=== PATIENT | female | born 1995 | race American Indian/Alaskan Native ===

== ENCOUNTER 2018-01-24 18:54 | Emergency (ER) | payer BC ==
[2018-01-24 20:02] VITALS: BP 137/86
[2018-01-24 21:53] LABS: Bacteria,Urine 4+ /HPF (Negative); Bilirubin,Urine NEG (Negative); Blood,Urine SM (Negative); Color,Urine Yellow (Yellow); Mucus,Urine 3+ /HPF; Protein,Urine <15 mg/dL mg/dL (Negative); Urobilinogen,Urine < 2.0 mg/dL (<2.0)
--- NOTE | 2018-01-24 22:39 | Emergency Department Report ---
ED Back Pain/Injury HPI - General Chief Complaint: Urogenital-Female Stated Complaint: UTI Time Seen by Provider: 01/24/18 21:48 Source: patient Limitations: No Limitations - History of Present Illness Initial Comments: a 22-year-old -Indian female who presents with lower back pain for 2 days. Patient reports pain is worse on the right side. She is having some dish Aredia urgency, and foul odor. Patient reports taken Azo for about 2 days when no improvement of symptoms. Patient reports symptoms are very similar to her the same symptoms she had last year when she was diagnosed with the UTI. Denies frequency, discharge, and fever. MD Complaint: back pain (bilateral low back pain, that is worse on right) -: days(s) (2 days) Similar Symptoms Previously: Yes (last year diagnosed with UTI) Place: home Radiation: none Severity: mild Severity scale (0 -10): 5 Quality: aching Consistency: intermittent Improves With: none Worsens With: none Context: unknown Associated Symptoms: denies other symptoms Treatments Prior to Arrival: other (AZO) - Related Data Previous Rx's Medication Instructions Recorded Last Taken Type Sulfamethoxazole/Trimethoprim 1 each PO BID #6 tablet 01/24/18 Unknown Rx [Bactrim DS TAB] Allergies Allergy/AdvReac Type Severity Reaction Status Date / Time No Known Allergies Allergy Unverified 01/24/18 20:02 ED Review of Systems ROS: Stated complaint: UTI Other details as noted in HPI Constitutional: denies: chills, fever Respiratory: denies: cough, shortness of breath, wheezing Cardiovascular: denies: chest pain, palpitations, edema, syncope Gastrointestinal: denies: abdominal pain, nausea, vomiting, diarrhea Genitourinary: urgency. denies: dysuria, frequency, hematuria, discharge Musculoskeletal: back pain (bilateral low back pain). denies: joint swelling, arthralgia Neurological: denies: headache, weakness, paresthesias Psychiatric: denies: anxiety, depression ED Back Pain Physical Exam - Exam General: Vital signs noted. No distress. Alert and acting appropriately. Back/Abdomen: Yes Flank Tenderness (left flank pain), No Abdominal Tenderness, No Perithoracic Tenderness, No Perilumbar Tenderness, No Sacroiliac Tenderness, No Straight Leg Raise Pain Neuro: Yes Normal Sensation, Yes Normal DTR's, Yes Normal Gait, No Motor Weakness ED Course Vital Signs 01/24/18 19:54 Temperature 98.3 F Pulse Rate 84 Respiratory 14 Rate Blood Pressure 137/86 O2 Sat by Pulse 98 Oximetry Ed Back Pain Tests - Tests Tests: Abnormal UA ED Medical Decision Making - Medical Decision Making This is a 22 y.o. female that presents with bilateral low back pain and urgency for 2 days. Patient examined by me and stable. No distress noted. Urine obtained and abnormal, blood and nitrates. Vitals stable. Physical findings + CVA tenderness on left. Start bactrim DS for acute cystitis. Take tylenol or ibuprofen for pain. Discussed plan with patient and he agreed with plan to treat outpatient. Discharged home. Follow up with PCP in 48-72 hours. Critical care attestation.: If time is entered above; I have spent that time in minutes in the direct care of this critically ill patient, excluding procedure time. ED Disposition Clinical Impression: Acute cystitis Qualifiers: Hematuria presence: with hematuria Qualified Code(s): N30.01 - Acute cystitis with hematuria Disposition: TO HOME OR SELFCARE Is pt being admited?: No Does the pt Need Aspirin: No Condition: Stable Instructions: Urinary Tract Infection in Women (ED) Additional Instructions: Increase fluid intake. Complete full course of antibiotics as prescribed. Symptoms should improve within 24-48 hours. Do not drink alcohol beverages while taking antibiotics and to 24 hours after completion of antibiotics. Follow up with primary care provider in 2-3 days. Prescriptions: Sulfamethoxazole/Trimethoprim [Bactrim DS TAB] 1 each PO BID #6 tablet Referrals: [facility] [Outside] - 3-5 Days [facility] [Outside] - 3-5 Days [facility] [Outside] - 3-5 Days Forms: Work/School Release Form(ED) Time of Disposition: 22:44 Print Language: SINHALA
== END 2018-01-24 22:50 | disposition home or self-care (01) ==
LOC: ED 18:54
DX: N30.01 Acute cystitis with hematuria (principal)
CPT/HCPCS: 81001; 87086; 99283

== ENCOUNTER 2018-01-30 20:49 | Emergency (ER) | payer BC ==
[2018-01-30] MEDS ORDERED: NACL 0.9% 1000 ML 1,000 ML IV ONE (21:47)
[2018-01-30] MEDS ORDERED: ATARAX PO ONE (21:47)
[2018-01-30 22:10] LABS: Basophils # (Auto) 0.1 K/mm3 (0.0-0.1); Basophils % (Auto) 0.9 % (0.0-1.8); Eosinophils # (Auto) 0.1 K/mm3 (0.0-0.4); Eosinophils % (Auto) 0.6 % (0.0-4.3); Hematocrit 35.6 % (30.3-42.9); Hemoglobin 12.1 gm/dl (10.1-14.3); Lymphocytes # (Auto) 1.9 K/mm3 (1.2-5.4); Lymphocytes % (Auto) 22.1 % (13.4-35.0); Mean Corpuscular HGB Conc 34 % (30-34); Mean Corpuscular Hemoglobin 33 pg (28-32); Mean Corpuscular Volume 96 fl (79-97); Monocytes # (Auto) 0.6 K/mm3 (0.0-0.8); Monocytes % (Auto) 6.5 % (0.0-7.3); Platelet Count 295 K/mm3 (140-440); Red Cell Distribution Width 12.1 % (13.2-15.2)
[2018-01-30 22:22] LABS: Alanine Aminotransferase 9 units/L (7-56); BUN/Creatinine Ratio 13; Blood Urea Nitrogen 9 mg/dL (7-17); Calcium 8.8 mg/dL (8.4-10.2); Hemolysis Index 78
[2018-01-30] MEDS ORDERED: ATIVAN PO ONE (23:19)
--- NOTE | 2018-01-30 23:22 | Emergency Department Report ---
ED Psych HPI - General Chief Complaint: Psych Stated Complaint: ALCOHOL WITHDRAWL Time Seen by Provider: 01/30/18 21:45 Source: patient Mode of arrival: Ambulatory - History of Present Illness Initial Comments: This is a 23-year-old female with alcohol use disorder who comes in with thoughts of suicide, anxiety, depression and she believes that she is in alcohol withdrawal. She did drink today. She states that she started drinking when she was young, and she usually binge drinks. She was like to get help with her drinking. She denies any other symptoms at this time except for anxiety. MD Complaint: suicidal ideation, feels depressed -: Gradual Associated Psychiatric Symptoms: depression, suicidal ideation Quality: constant Improves With: none Worsens With: none Context: recent alcohol abuse Associated Symptoms: denies other symptoms Treatments Prior to Arrival: none If Self Harm: admits thoughts of - Related Data Previous Rx's Medication Instructions Recorded Last Taken Type Sulfamethoxazole/Trimethoprim 1 each PO BID #6 tablet 01/24/18 Unknown Rx [Bactrim DS TAB] Allergies Allergy/AdvReac Type Severity Reaction Status Date / Time No Known Allergies Allergy Verified 01/30/18 21:51 ED Review of Systems ROS: Stated complaint: ALCOHOL WITHDRAWL Other details as noted in HPI Comment: All other systems reviewed and negative Constitutional: see HPI Eyes: as per HPI ENT: as per HPI Respiratory: see HPI Cardiovascular: as per HPI Endocrine: see HPI Gastrointestinal: as per HPI Genitourinary: as per HPI Musculoskeletal: as per HPI Skin: as per HPI Neurological: as per HPI Psychiatric: as per HPI Hematological/Lymphatic: as per HPI ED Past Medical Hx - Past Medical History Previous Medical History?: No - Surgical History Past Surgical History?: No - Social History Smoking Status: Never Smoker Substance Use Type: Alcohol - Medications Home Medications: Home Medications Medication Instructions Recorded Confirmed Last Taken Type Sulfamethoxazole/Trimethoprim 1 each PO BID #6 tablet 01/24/18 Unknown Rx [Bactrim DS TAB] ED Physical Exam - General Limitations: No Limitations General appearance: alert, in no apparent distress - Head Head exam: Present: atraumatic - Eye Eye exam: Present: normal appearance, PERRL, EOMI - ENT ENT exam: Present: normal exam, normal orophraynx - Neck Neck exam: Present: normal inspection, full ROM - Respiratory Respiratory exam: Present: normal lung sounds bilaterally. Absent: respiratory distress, wheezes, rales, rhonchi - Cardiovascular Cardiovascular Exam: Present: regular rate, normal rhythm, normal heart sounds - GI/Abdominal GI/Abdominal exam: Present: soft, normal bowel sounds - Extremities Exam Extremities exam: Present: normal inspection, full ROM - Back Exam Back exam: Present: normal inspection, full ROM - Neurological Exam Neurological exam: Present: alert, oriented X3, CN II-XII intact - Psychiatric Psychiatric exam: Present: anxious - Skin Skin exam: Present: warm, dry, intact, normal color ED Course Vital Signs 01/30/18 01/30/18 21:22 23:02 Temperature 98.5 F 98.7 F Pulse Rate 107 H 82 Respiratory 20 18 Rate Blood Pressure 150/100 Blood Pressure 124/87 [Right] O2 Sat by Pulse 98 100 Oximetry - Reevaluation(s) Reevaluation #1: 01/30/18 23:17 [address] to [address] the patient on a 1013. Will get mental health evaluation. 01/30/18 23:25 ED Medical Decision Making - Lab Data Result diagrams: 01/30/18 21:53 01/30/18 21:53 Critical care attestation.: If time is entered above; I have spent that time in minutes in the direct care of this critically ill patient, excluding procedure time. ED Disposition Clinical Impression: Alcohol use disorder, Suicidal ideation, Anxiety Depression Qualifiers: Depression Type: unspecified Qualified Code(s): F32.9 - Major depressive disorder, single episode, unspecified Disposition: [id number]/[id number] PSY HOSP/PSY UNIT Is pt being admited?: No Does the pt Need Aspirin: No Condition: Stable Referrals: PRIMARY CARE, [Primary Care Provider] - 3-5 Days
[2018-01-31 05:39] LABS: Bilirubin,Urine NEG (Negative); Blood,Urine NEG (Negative); Color,Urine Straw (Yellow); HCG Qualitative,Urine Negative (Negative); Protein,Urine <15 mg/dL mg/dL (Negative); Urobilinogen,Urine < 2.0 mg/dL (<2.0)
[2018-01-31 05:47] LABS: Amphetamine Screen,Urine PRESUMPTIVE NEGATIVE; Benzodiazepines Screen,Urine PRESUMPTIVE NEGATIVE; Cannabinoid Screen,Urine PRESUMPTIVE NEGATIVE; Cocaine Screen,Urine PRESUMPTIVE NEGATIVE; Methadone Screen,Urine PRESUMPTIVE NEGATIVE; Opiate Screen,Urine PRESUMPTIVE NEGATIVE
--- NOTE | 2018-01-31 15:55 | Consultation ---
History of Present Illness - Reason for Consult Reason for consult: recent SI, anxiety and etoh abuse - History of Present Psychiatric Illness CHIEF COMPLAINT IN PATIENTS WORDS: HISTORY OF PRESENT ILLNESS: This is a 23-year-old female with a past psychiatric history of alcohol abuse and likely anxiety disorder who presents secondary to recent panic-like symptoms in the context of a binging episode on alcohol. No current psychotropic medication exposure noted. Acute stressors include recent graduation from college with limited scope for employment, reported homelessness , ongoing disputes with her boyfriend and lack of transportation. Patient notes she recently began binge drinking on January 25 and has been experiencing severe anxiety over the past 24-48 hours. This prompted her to come to the ER for further care. On my examination, patient maintained symptoms of severe anxiety and endorsed suicidal thoughts. PSYCHIATRIC REVIEW OF SYSTEMS: Substance: recent EtOH use, BAL 0.01 Detoxification/Withdrawal: anxiety, restlessness, no tremors Depression: irritable and labile moods, periodically sad and anhedonic Radha: labile moods, not hyperverbal, no flight of ideas Psychosis: no AVH, no thought disorder noted, no paranoia/grandiosity/erotomania Anxiety/ OCD/ PTSD: endorses avoidance, panic attacks Suicidality: endorses SI Other Self-Injurious Behavior: none currently, no SIB noted recently Violent/ Aggressive Behavior: none noted CURRENT MEDICATIONS: none ALLERGIES: NKDA PAST PSYCHIATRIC HISTORY: Inpatient: detox at [facility] Outpatient: none reported Prior Suicide Attempts: denies Prior Self-Injurious Behaviors: denies PAST PSYCHIATRIC MEDICATION TRIALS: denies MEDICAL HISTORY: Denies MENTAL STATUS EXAM: Patient in hospital gown, mostly cooperative good eye contact, well related, somewhat anxious and withdrawn, constricted, slow soft, concrete and perseverative, somatically focused, positive suicidal thoughts, no auditory or visual hallucinations, no homicidal thoughts, insight judgment limited, ADLs fair STRENGTHS: communication skills and ability for insight PSYCHOSOCIAL AND ENVIRONMENTAL STRESSORS: lack of transportation, unemployed, relationship difficulties ASSESSMENT: Alcohol abuse Substance abuse mood disorder Generalized anxiety disorder with panic attacks Emerging major depression PLAN OF CARE: - continue 1013 and refer for inpatient psychiatric hospitalization - discontinue benzodiazapines - start scheduled vistaril 25 mg po tid - start sertraline 25 mg po qam Medications and Allergies Allergies Allergy/AdvReac Type Severity Reaction Status Date / Time No Known Allergies Allergy Verified 01/30/18 21:51 Home Medications Medication Instructions Recorded Confirmed Last Taken Type Sulfamethoxazole/Trimethoprim 1 each PO BID #6 tablet 01/24/18 Unknown Rx [Bactrim DS TAB] Mental Status Exam - Vital signs Last Vital Signs Temp 98.7 F 01/30/18 23:02 Pulse 62 01/31/18 03:00 Resp 14 01/31/18 03:00 BP 122/64 01/31/18 03:00 Pulse Ox 100 01/31/18 03:00 Results Result Diagrams: 01/30/18 21:53 01/30/18 21:53 Abnormal lab results 01/30/18 01/30/18 01/30/18 Range/Units 21:53 21:53 21:53 MCH 33 H (28-32) pg RDW 12.1 L (13.2-15.2) % Sodium 136 L (137-145) mmol/L Salicylates < 0.3 L (2.8-20.0) mg/dL Acetaminophen (10.0-30.0) ug/mL 01/30/18 Range/Units 21:53 MCH (28-32) pg RDW (13.2-15.2) % Sodium (137-145) mmol/L Salicylates (2.8-20.0) mg/dL Acetaminophen < 5.0 L (10.0-30.0) ug/mL All other labs normal.
[2018-01-31] MEDS ORDERED: ZOLOFT PO SCH (16:00)
[2018-01-31] MEDS: VISTARIL PO SCH (20:41)
[2018-02-01 09:07] VITALS: BP 149/90
[2018-02-01] MEDS: VISTARIL PO SCH (09:08)
--- NOTE | 2018-02-01 12:04 | Progress Note ---
Subjective - Reason for Consult Consult date: 02/01/18 Reason for consult: Psychiatry Follow-up - Chief Complaint Chief complaint: 23-year-old female with a past psychiatric history of alcohol abuse and likely anxiety disorder who presents secondary to recent panic-like symptoms in the context of a binging episode on alcohol. Today the patient is calm and cooperative. She stated experiencing "lots of " with family/friends recently, so she is afraid of dying. She rate her depression/anxiety 6/10, with 10 being the worse. She would not confirm or deny SI's. She denies HI's and AVH' s. She denies any side effects of her medication. Mental Status Exam - Vital signs Last Vital Signs Temp 98.6 F 02/01/18 09:00 Pulse 107 H 02/01/18 09:00 Resp 18 02/01/18 09:00 BP 149/90 02/01/18 09:00 Pulse Ox 98 02/01/18 09:00 - Exam Narrative exam: MSE: Appearance: calm, cooperative Behavior: regular eye contact Speech: regular rate and tone Mood: "okay" Affect: congruent to mood Thought Process: circumstantial Thought Content: denies SI/HI's and AVH's, would not confirm or deny SI's Motor Activity: lying in bed Cognition: A/O x 3 Insight: variable Judgment: variable Assessment and Plan Impression: MDD. JAMARCUS. Alcohol Use DO. Today the patient is calm and cooperative. The patient could not confirm or deny SI's. Recommendation/Plan: Continue 1013 with placement to inpatient psy services. Continue Zoloft 25 mg PO daily for depression/anxiety and Vistaril 25 mg PO TID for anxiety. Discussed possible suicidality/medication induced jeremie reference Zoloft.
== END 2018-02-01 09:11 ==
LOC: EEVIPCON 20:49 → ED 20:49
DX: F32.9 Major depressive disorder, single episode, unspecified (principal); F10.10 Alcohol abuse, uncomplicated; F41.1 Generalized anxiety disorder
CPT/HCPCS: 36415; 80053; 80307; 81001; 81025; 85025; 96360; 99285; G0480; J7030; 80320; Q0177